=== PATIENT | female | born 1980 | race Two or more races ===

== ENCOUNTER 2017-01-20 02:31 | Emergency (ER) | payer MEDICAID ==
[~2017-01-20] VITALS: Ht 157.5 cm; Wt 81.6 kg
[2017-01-20 02:41] VITALS: BP 153/87
== END 2017-01-20 06:30 | disposition left against medical advice (07) ==
LOC: ER 02:31
DX: G43.909 Migraine, unspecified, not intractable, without status migrainosus (principal); R42 Dizziness and giddiness; R11.0 Nausea; Z53.21 Procedure and treatment not carried out due to patient leaving prior to being seen by health care provider
CPT/HCPCS: 70450